=== PATIENT | male | born 1935 | race Hispanic/Latino ===

== ENCOUNTER 2019-02-13 12:05 | Day surgery (SDC) | payer MEDICARE ==
[~2019-02-13 12:05] MED LIST: IOPIDINE ONE; MYDRIACYL ONE; NEOFRIN ONE
[2019-02-13] MEDS ORDERED: IOPIDINE OD ONE (12:33)
[2019-02-13] MEDS ORDERED: MYDRIACYL OD ONE (12:33)
[2019-02-13] MEDS ORDERED: NEOFRIN OD ONE (12:33)
[2019-02-13 14:26] VITALS: BP 174/101
== END 2019-02-13 12:06 | disposition home or self-care (01) ==
LOC: OR 12:05
PROVIDERS: ATTEND Specialist
DX: E11.36 Type 2 diabetes mellitus with diabetic cataract (principal); H26.491 Other secondary cataract, right eye; E78.00 Pure hypercholesterolemia, unspecified; I48.91 Unspecified atrial fibrillation; E11.42 Type 2 diabetes mellitus with diabetic polyneuropathy; I10 Essential (primary) hypertension; K21.9 Gastro-esophageal reflux disease without esophagitis; M19.90 Unspecified osteoarthritis, unspecified site; Z91.013 Allergy to seafood; Z88.5 Allergy status to narcotic agent; Z90.49 Acquired absence of other specified parts of digestive tract; Z88.2 Allergy status to sulfonamides; Z79.01 Long term (current) use of anticoagulants; Z79.899 Other long term (current) drug therapy; Z98.41 Cataract extraction status, right eye; Z98.42 Cataract extraction status, left eye; Z86.2 Personal history of diseases of the blood and blood-forming organs and certain disorders involving the immune mechanism; Z88.8 Allergy status to other drugs, medicaments and biological substances
CPT/HCPCS: 82962